=== PATIENT | male | born 1980 | race Hispanic/Latino ===

== ENCOUNTER 2018-05-28 01:10 | Emergency (ER) | payer SELFPAY ==
[2018-05-28] MEDS ORDERED: Acetaminophen 500 MG TAB ONE (01:35)
--- NOTE | 2018-05-28 08:19 | RAD ---
CHEST TWO VIEWS: HISTORY: Fever. COMPARISON: None. FINDINGS: Two views of the chest show normal sized cardiomediastinal silhouette. There is no evidence of consol idation, mass, or pleural effusion. The bones are unremarkable. IMPRESSION: No evidence of acute cardiopulmonary disease. POS: [facility]
== END 2018-05-28 03:08 | disposition home or self-care (01) ==
LOC: ERS 01:10
DX: B34.9 Viral infection, unspecified (principal)
CPT/HCPCS: 71046; 87804